=== PATIENT | male | born 2000 | race African-American/Black ===

== ENCOUNTER 2022-08-16 14:47 | Emergency (ER) | payer OTHER, SELFPAY ==
[2022-08-16 14:52] VITALS: BP 109/65; PULSE 81; RESP 16; TEMP 36.9; O2SAT 100
--- NOTE | 2022-08-16 14:53 | ED.URI ---
HPI - URI/Sore Throat General Chief Complaint: Upper Respiratory Infection Stated Complaint: Fever/Sore Throat Time Seen by Provider: 08/16/22 14:53 Source: patient and RN notes reviewed History of Present Illness HPI Narrative: Patient is a 22-year-old male who presents to urgent care with complaints of fever, body aches, headache and sore throat. Patient states that it started 2 days ago and he has taken aspirin. Denies any nausea, vomiting or ill exposures. No other acute complaints. No acute distress noted. Patient aware of the plan of care. Some parts of this dictation were generated by voice recognition software and may contain typographical and/or grammatical inaccuracies. Related Data Home Medications Medication Instructions Recorded Confirmed carvedilol 6.25 mg tablet 6.25 mg PO BID 08/16/22 08/16/22 escitalopram oxalate 10 mg tablet 10 mg PO DAILY 08/16/22 08/16/22 famotidine 20 mg tablet 20 mg PO BID 08/16/22 08/16/22 hydroxyzine pamoate 25 mg capsule 25 mg PO TID PRN Anxiety 08/16/22 08/16/22 Allergies Allergy/AdvReac Type Severity Reaction Status Date / Time No Known Allergies Allergy Verified 08/16/22 15:00 Review of Systems Review of Systems: CONSTITUTIONAL: Denies fever, chills, or sweats. EYES: Denies visual changes, redness, or discharge. ENT: Reports of congestion, sore throat CARDIOVASCULAR: Denies chest pain, palpitations, or edema. RESPIRATORY: Denies cough or dyspnea. GASTROINTESTINAL: Denies abdominal pain, nausea, vomiting, or diarrhea. GENITOURINARY: Denies dysuria or hematuria. SKIN: Denies rash or itching. MUSCULOSKELETAL: Denies back pain, joint pain. Reports body aches NEUROLOGIC: Reports of headaches All other systems reviewed are negative, except as documented in HPI. PMFSH Comments At the time of my signature, I reviewed and agree with the nursing past medical, surgical, social, and family history. There is no relevant family history pertinent to the patient complaint. Exam Narrative: GENERAL: This is a well-nourished, well-developed patient, in no apparent distress. HEAD: normocephalic, atraumatic. EYES: PERRL. Sclera clear/white. Vision is grossly intact. EARS: External ears normal, auditory canals clear and without drainage, mild bilateral eustachian tube dysfunction. TMs normal without perforation. Hearing grossly intact. NOSE: External nose normal with no obvious nasal discharge, nares without redness, no rhinorrhea. THROAT: Mucous membranes moist, posterior pharynx clear. Moderate postnasal drainage NECK: Neck supple, non-tender without lymphadenopathy, masses or thyromegaly. CARDIOVASCULAR: Regular rate and rhythm without murmurs, gallops, or rubs. RESPIRATORY: Clear to auscultation. Breath sounds equal bilaterally. No wheezes, rales, or rhonchi. SKIN: warm, intact with no suspicious lesions or rash, good texture and turgor. NEURO: awake, alert, and oriented to person, place and time. There were no obvious focal neurologic abnormalities. EXTREMITIES: No clubbing, cyanosis, or edema. Course Course Level of Care: Express Care Visit Vital Signs Vital signs: Vital Signs Temperature 98.5 F 08/16/22 14:52 Pulse Rate 81 08/16/22 14:52 Respiratory Rate 16 08/16/22 14:52 Blood Pressure 109/65 08/16/22 14:52 Pulse Oximetry 100 08/16/22 14:52 Oxygen Delivery Room Air 08/16/22 14:52 Temperature 98.5 F 08/16/22 14:52 Pulse Rate 81 08/16/22 14:52 Respiratory Rate 16 08/16/22 14:52 Blood Pressure 109/65 08/16/22 14:52 Pulse Oximetry 100 08/16/22 14:52 Oxygen Delivery Room Air 08/16/22 14:52 Reviewed MDM - URI/Sore Throat MDM Narrative Medical decision making narrative: Reviewed lab results with the patient. He is aware that strep swab was negative. Educated patient on culture we will call within 72 hours if culture is positive antibiotics are necessary. Advised patient to use [id number] medication as needed for symp
== END 2022-08-16 15:22 | disposition home or self-care (01) ==
PROVIDERS: Emergency Provider Nurse Practitioner Family
DX: J02.9 Acute pharyngitis, unspecified (principal)
CPT/HCPCS: 87081; 87880; 99213; G0463

== ENCOUNTER 2022-09-18 16:14 | Emergency (ER) | payer OTHER, SELFPAY ==
[2022-09-18 16:18] VITALS: BP 133/73; PULSE 79; RESP 20; TEMP 37.1; O2SAT 100
[2022-09-18 16:23] VITALS: BP 133/73; PULSE 79; RESP 20; TEMP 37.1; O2SAT 100
--- NOTE | 2022-09-18 16:24 | ED.EAR ---
HPI - Ear Problem General Chief complaint: Ear Stated complaint: Ears History of Present Illness HPI Narrative: patient presents with chronic ear pain no drainage from ears patient states he cleaned his ears with peroxice and q-tps then he started to have ear pain Related Data Home Medications Medication Instructions Recorded Confirmed escitalopram oxalate 10 mg tablet 10 mg PO DAILY 08/16/22 08/16/22 hydroxyzine pamoate 25 mg capsule 25 mg PO TID PRN Anxiety 08/16/22 08/16/22 Allergies Allergy/AdvReac Type Severity Reaction Status Date / Time No Known Allergies Allergy Verified 08/16/22 15:00 Review of Systems Review of Systems: CONSTITUTIONAL: Denies fever, chills, or sweats. EYES: Denies visual changes, redness, or discharge. ENT: Denies rhinorrhea, congestion, sore throat, or otalgia. CARDIOVASCULAR: Denies chest pain, palpitations, or edema. RESPIRATORY: Denies cough or dyspnea. GASTROINTESTINAL: Denies abdominal pain, nausea, vomiting, or diarrhea. GENITOURINARY: Denies dysuria or hematuria. SKIN: Denies rash or itching. MUSCULOSKELETAL: Denies back pain, joint pain, or myalgia. NEUROLOGIC: Denies headache, numbness, or weakness. PSYCHIATRIC: Denies anxiety or depression. PMFSH Comments At time of signature, agree with nursing past medical, surgical, social and family history. There is no relevant family history pertinent to the presenting complaint Exam Narrative: GENERAL: Well-appearing, well-nourished, and in no acute distress. HEAD: Normocephalic, atraumatic. EYES: PERRLA and EOMI. ENT: Nares clear, no rhinorrhea or epistaxis. Mucous membranes moist. NECK: Supple. CHEST: Clear to auscultation. No respiratory distress. HEART: Regular rate and rhythm. No murmur heard. Normal peripheral pulses. ABDOMEN: Soft, nontender, nondistended, normal active bowel sounds. EXTREMITIES: Normal range of motion. No edema. SKIN: Warm, dry, no rash. NEURO: No focal deficits. Alert and oriented x3. Karolina Coma Scale Eye Opening: Spontaneous 4 [place] Coma Scale Motor: Obeys Commands 6 Karolina Coma Scale Verbal: Oriented 5 [place] Coma Scale Total 15 HENMT: Ears: EAC's normal and Abnormal EAC present erythema and EAC tenderness on the right Course Course Level of Care: Express Care Visit Vital Signs Vital signs: Vital Signs Temperature 37.1 C 09/18/22 16:18 Pulse Rate 79 09/18/22 16:18 Respiratory Rate 20 09/18/22 16:18 Blood Pressure 133/73 09/18/22 16:18 Pulse Oximetry 100 09/18/22 16:18 Oxygen Delivery Room Air 09/18/22 16:18 Temperature 37.1 C 09/18/22 16:23 Pulse Rate 79 09/18/22 16:23 Respiratory Rate 20 09/18/22 16:23 Blood Pressure 133/73 09/18/22 16:23 Pulse Oximetry 100 09/18/22 16:23 Oxygen Delivery Room Air 09/18/22 16:23 Medical Decision Making Vital Signs Vital Signs: Vital Signs Temperature 37.1 C 09/18/22 16:18 Pulse Rate 79 09/18/22 16:18 Respiratory Rate 20 09/18/22 16:18 Blood Pressure 133/73 09/18/22 16:18 Pulse Oximetry 100 09/18/22 16:18 Oxygen Delivery Room Air 09/18/22 16:18 Temperature 37.1 C 09/18/22 16:23 Pulse Rate 79 09/18/22 16:23 Respiratory Rate 20 09/18/22 16:23 Blood Pressure 133/73 09/18/22 16:23 Pulse Oximetry 100 09/18/22 16:23 Oxygen Delivery Room Air 09/18/22 16:23 Discharge Plan Discharge Clinical Impression: Otitis externa Patient Disposition: Home, Self-Care Condition: Stable Instructions: Antibiotic Form, Earache (ED) Additional Instructions: can use a heating pad on ear or a warm wet washcloth to the outer ear for approximate 20 minutes as needed for pain, this may help with the drainage try to keep the ear canals dry: After baths, showers, hair washing, swimming, turn your head to help the water drain out of the ears. DO NOT USE A Q-TIP use drying drops the rest of the swim season. can use Tylenol or ibuprofen alternating as needed for emeka
== END 2022-09-18 16:34 | disposition home or self-care (01) ==
PROVIDERS: Emergency Provider Nurse Practitioner Family
DX: H60.91 Unspecified otitis externa, right ear (principal); K21.9 Gastro-esophageal reflux disease without esophagitis
CPT/HCPCS: 99213; G0463